=== PATIENT | female | born 1950 | race Caucasian/White ===

== ENCOUNTER → 2019-11-08 11:27 | Outpatient (REF) | payer MEDICARE, SELFPAY | LOC: ANHLAB 11:27 | PROVIDERS: PCP Internal Medicine; Visit Provider Surgery Plastic and Reconstructive Surgery | DX: L98.9 Disorder of the skin and subcutaneous tissue, unspecified (principal) | CPT/HCPCS: 88305 ==

== ENCOUNTER 2020-06-06 02:45 | Outpatient (CLI) | payer MEDICARE, SELFPAY ==
[2020-06-06 19:51] LABS: SARS-CoV-2 RNA PCR Negative
== END 2020-06-06 02:46 | disposition home or self-care (01) ==
LOC: ANHCOVIDDT 02:45
PROVIDERS: PCP Physician Assistant; Visit Provider Orthopaedic Surgery
DX: Z01.812 Encounter for preprocedural laboratory examination (principal); Z20.828 Contact with and (suspected) exposure to other viral communicable diseases
CPT/HCPCS: 87635; C9803; U0003

== ENCOUNTER 2020-06-09 01:28 | Day surgery (SDC) | payer MEDICARE, SELFPAY ==
[2020-06-05 13:29] VITALS: BMI 22.8
--- NOTE | 2020-06-09 07:18 | WPDANESEPPF ---
Anes - Initial Pre Proc Eval Procedure: Operation Date: 06/09/20 10:00 Proposed Procedures p Right Fourth Trigger Finger Release - Reymundo Lewis MD Date/Time: 06/09/20 07:18 Surgeon: Reymundo Lewis MD Pre Op Diagnosis: Right Fourth Trigger Finger Patient Data Age: 70 Gender: F Height: 1.73 m Weight: 68.05 kg Allergies Allergy/AdvReac Type Severity Reaction Status Date / Time piroxicam Allergy Mild Rash, Verified 06/09/20 08:00 TONGUE SWELLING Home Medications Medication Instructions Recorded Confirmed Type amitriptyline 100 mg tablet 100 mg PO HS tablet 09/18/19 06/09/20 History carbamazepine 200 mg tablet 400 mg PO QAM tablet 09/18/19 06/09/20 History fluoxetine 20 mg capsule 20 mg PO HS cap 09/18/19 06/09/20 History ibrutinib 420 mg tablet 420 tablet PO QAM 09/18/19 06/09/20 History acyclovir 400 mg tablet 400 mg PO BID 05/07/20 06/09/20 History xktlsgew-cny-efbht acid 0.4 1 tablet PO DAILY 05/07/20 06/09/20 History mg-lycopene 300 mcg-lutein 250 mcg tablet zoledronic acid 4 mg/5 mL 1 mg IV ONCE 05/07/20 06/05/20 History intravenous solution Lacto.acidophilus-Bif.animalis 1 cap PO DAILY 06/05/20 06/09/20 History [Daily Probiotic] calcium carbonate-vitamin D3 1 tablet PO TID 06/05/20 06/09/20 History [calcium-vitamin D3] carbamazepine 200 mg PO BID 06/05/20 06/09/20 History gabapentin 600 mg PO QID 06/05/20 06/09/20 History Patient hx anesthesia problems: none Family hx anesthesia problems: none PMFSH Past Medical History Medical History (Updated 06/09/20 @ 07:18 by Kendall Carbajal DO) BMI 23.0-23.9, adult Cancer of blood vessel Chronic pain Depression Fractured elbow left Fractured femoral neck left Macroglobulinemia Osteoporosis Surgical History Surgical History H/O elbow surgery 2007, left Dr. Lewis Family History Family History Mother Hypertension Cancer Father Cerebrovascular accident Social History Social History Smoking status: Never smoker Alcohol intake: current Drinks per week: 1 Living arrangements: with family Gender identity (if verbalized by the patient): Female Spiritual care concerns: No Anes - Eval Final PreProcedure Day of Procedure 06/09/20 07:18 Patient weight: normal Heart: regular rate and rhythm Lungs: clear to auscultation and normal air movement Airway: Mallampati scale class II Neurological: alert and oriented Last oral intake: >/= 8 hours ASA classification: III Emergent: no Anesthetic plan: proceed Anesthesia type and monitoring: general GIVS and standard monitoring Informed Consent: The patient's anesthetic plan and its attendant risks and benefits were discussed with the patient/family/POA. Questions were solicited and answers provided to the satisfaction of the patient/family/POA.
[2020-06-09] MEDS: ACETAMINOPHEN 500 MG TABLET 1000 MG PO (08:33)
[2020-06-09] MEDS: LACTATED RINGERS 1,000 ML 30 ML IV CONT (08:33)
[2020-06-09 08:37] VITALS: BP 142/78; PULSE 77; RESP 16; TEMP 36.5; O2SAT 100
--- NOTE | 2020-06-09 08:49 | WPDHPUPDATE1 ---
History and Physical Update Update Date/Time: 06/09/20 08:49 History and Physical has been reviewed, including an updated exam of the patient. There are NO changes in the patient's condition. Risks, benefits, and alternatives have been discussed and questions answered. Patient agrees to proceed with procedure.
--- NOTE | 2020-06-09 09:14 | SUR.PREOP ---
Up to bathroom.
[2020-06-09] MEDS: ceFAZolin 2 GM/D5W 50 ML 2 GM/50 ML BAG IVPB (10:21)
[2020-06-09 10:50] VITALS: BP 122/65; PULSE 65; RESP 14; O2SAT 98
--- NOTE | 2020-06-09 11:05 | P.OP_ITS ---
Procedure Note - Detailed Date of procedure: 06/09/20 Pre-op diagnosis: Right Fourth Trigger Finger Post-op diagnosis: same Procedure performed: Right fourth trigger finger release Description of procedure: which the patient was identified and proper site identified. She was taken to the operating room transfer the or table placing her supine taking care to pad her torso and extremities. A nonsterile tourniquet was placed high in the right arm which was then prepped and draped in the usual sterile fashion. She is administered IV sedation. Several cc of 0.25% plain Marcaine was injected into the subcutaneous tissue over the A1 pull ey of the right fourth digit. Extremities exsanguinated and tourniquet was inflated to 250 mmHg remaining up for 6 minutes. A longitudinal incision was made over the A1 chadd the right fourth digit. Subcutaneous tissue was bluntly dissected protecting neurovascular structures. Chadd was identified and divided longitudinally in line with the incision along for the tendons to be delivered into the wound to verify the adequacy of the release. The wound was irrigated with sterile antibiotic solution. Hemostasis was carried out. Skin edges reapproximated with for 0 nylon suture. Sterile dressing was applied and the tourniquet was released. She tolerated the procedure well, was transferred back to her cart and taken to recovery area in stable condition. There were no known intraoperative complications. Estimated blood loss was negligible. She received perioperative antibiotics. Anesthesia: MAC and local Surgeon: Reymundo Lewis MD Estimated blood loss (mL): 1 Tourniquet time (min): 6 Drains: No Packing: No Pathology: none sent Complications: No immediate complications Condition: stable Disposition: PACU
[2020-06-09 11:20] VITALS: BP 179/66; PULSE 74; RESP 14; O2SAT 100
[2020-06-09 11:30] VITALS: BP 148/75; PULSE 65; RESP 14
== END 2020-06-09 11:40 | disposition home or self-care (01) ==
PROVIDERS: PCP Physician Assistant; Visit Provider Orthopaedic Surgery
PROC: (CPT 26055; principal; 2020-06-09 10:00)
DX: M65.341 Trigger finger, right ring finger (principal); M81.0 Age-related osteoporosis without current pathological fracture; F32.9 Major depressive disorder, single episode, unspecified
CPT/HCPCS: 26055; A9270; J0690; J2704; J3010; J7120

== ENCOUNTER → 2020-07-30 16:06 | Outpatient (REF) | payer MEDICARE, SELFPAY | LOC: ANHLAB 16:06 | PROVIDERS: PCP Physician Assistant; Visit Provider Surgery Plastic and Reconstructive Surgery | DX: H61.001 Unspecified perichondritis of right external ear (principal) | CPT/HCPCS: 88305 ==

== ENCOUNTER 2022-02-09 12:18 | Outpatient (CLI) | payer MEDICARE, SELFPAY ==
--- NOTE | 2022-02-10 09:06 | P.NEURO_ITS ---
Neurology EEG Report General Information Date of Study: 02/09/22 TEST eeg DIAGNOSIS tremors CONDITION OF RECORDING awake and drowsy EEG NUMBER [id number] CLINICAL HISTORY Patient reports he had tremors when she was put on amitriptyline. Dosage was reduced and tremors stopped EEG DESCRIPTION basic resting occipital frequency consists of small amount of poorly organized low voltage 8 to 9 hertz per 2nd alpha admixed with low-voltage to medium v oltage 6 to 7 hertz per 2nd theta. Bilateral symmetrical sleep activity seen during sleep. Hyperventilation not done. Photic stimulation produced normal drive. Non paroxysmal. Nonfocal. Nonlateralizing. IMPRESSION Only minimally abnormal record due to the presence of diffuse slowing of the background rhythm considering the age of the patient clinical correlation recommended as these abnormalities could be suggestive of underlying organic or metabolic encephalopathy
== END 2022-02-09 12:19 | disposition home or self-care (01) ==
LOC: ANHNEURO 12:19
PROVIDERS: PCP Physician Assistant; Visit Provider Psychiatry & Neurology Neurology
DX: R56.9 Unspecified convulsions (principal); R94.131 Abnormal electromyogram [EMG]
CPT/HCPCS: 95816